=== PATIENT | male | born 1980 | race Caucasian/White ===

== ENCOUNTER 2018-01-13 02:58 | Emergency (ER) | payer SELFPAY ==
[2018-01-13] MEDS ORDERED: NA CHLORIDE 0.9% 1,000 ML ONE (03:42)
[2018-01-13 03:48] LABS: Absolute Monocytes 0.4 K/uL (0.1-1.3); Absolute Neutrophil 4.8 K/uL (1.8-8.0); Basophils % 2.2 % (0-1.3); Eosinophils % 1.9 % (0-4.4); Hematocrit 46.1 % (39.6-49.0); Lymphocytes % 34.9 % (15.3-44.8); MCH 31.2 pg (27.0-35.0); MCV 88.1 fL (80-100); MPV 8.7 fL (7.6-11.3); Monocytes % 4.9 % (3.3-12.3); RBC Red Blood Cell Count 5.23 M/uL (4.33-5.43)
[2018-01-13 03:50] LABS: Protime INR 0.97
[2018-01-13 04:28] LABS: ALT/SGPT 57 U/L (12-78); AST/SGOT 20 U/L (15-37); Albumin 3.9 g/dL (3.4-5.0); Alkaline Phosphatase 61 U/L (45-117); BUN Blood Urea Nitrogen 16 mg/dL (7-18); Bicarbonate 25 mmol/L (21-32); Bilirubin Direct < 0.1 mg/dL (0-0.2); Bilirubin Total 0.4 mg/dL (0.2-1.0); Glucose Level 103 mg/dL (74-106); Potassium 3.6 mmol/L (3.5-5.1); Protein, Total 7.5 g/dL (6.4-8.2); Sodium Level 140 mmol/L (136-145)
[2018-01-13 06:18] LABS: Urine Blood NEGATIVE (NEG); Urine Glucose NEGATIVE (NEG); Urine Protein NEGATIVE (NEG); Urine Specific Gravity 1.015 (1.005-1.030); Urine pH 5.5 (5.0-7.0)
[2018-01-13 06:22] LABS: Barbiturates NEGATIVE (NEGATIVE); Benzodiazepines NEGATIVE (NEGATIVE); Cocaine NEGATIVE (NEGATIVE); METHAMPHETAM NEGATIVE (NEGATIVE); Methadone NEGATIVE (NEGATIVE); Opiates NEGATIVE (NEGATIVE); Phencyclidine NEGATIVE (NEGATIVE); THC Cannibis POSITIVE (NEGATIVE)
--- NOTE | 2018-01-13 07:19 | EDPHYS ---
Physician Documentation [facility] Name: Jluis Vyas Age: 37 yrs Sex: Male : 1980 Arrival Date: 01/13/2018 Time: 03:02 Bed 6 Private MD: ED Physician Kye Cole HPI: 01/13 03:17 This 37 yrs old Male presents to ER via Unassigned with complaints of augusto Depression. 03:17 The patient presents to the emergency department with depression. Onset: The augusto symptoms/episode began/occurred 7 day(s) ago. Past psychiatric history: Prior diagnosis: depression. Associated signs and symptoms: The patient has no apparent associated signs or symptoms. Severity of symptoms: At their worst the symptoms were mild moderate in the emergency department the symptoms are unchanged. The patient has not experienced similar symptoms in the past. Historical: - Allergies: 03:23 No Known Allergies; jd3 - Home Meds: 03:23 Omeprazole Oral [Active]; jd3 - PMHx: 03:23 Crohn's; Sleep Apnea; jd3 - PSHx: 03:23 None; jd3 - Immunization history:: Adult Immunizations up to date, Flu vaccine is not up to date. - Social history:: Smoking status: Patient uses tobacco products, denies chronic smoking, but will smoke occasionally, pt reports vaping, Patient uses street drugs, marijuana. - Family history:: not pertinent. - Ebola Screening: : Patient negative for fever greater than or equal to 101.5 degrees Fahrenheit, and additional compatible Ebola Virus Disease symptoms. ROS: 03:17 Constitutional: Negative for fever, chills, and weight loss, Eyes: Negative for injury, augusto pain, redness, and discharge, ENT: Negative for injury, pain, and discharge, Neck: Negative for injury, pain, and swelling, Cardiovascular: Negative for chest pain, palpitations, and edema, Respiratory: Negative for shortness of breath, cough, wheezing, and pleuritic chest pain, Abdomen/GI: Negative for abdominal pain, nausea, vomiting, diarrhea, and constipation, Back: Negative for injury and pain, : Negative for injury, bleeding, discharge, and swelling, MS/Extremity: Negative for injury and deformity, Skin: Negative for injury, rash, and discoloration, Neuro: Negative for headache, weakness, numbness, tingling, and seizure, Allergy/Immunology: Negative for hives, rash, and allergies, Endocrine: Negative for neck swelling, polydipsia, polyuria, polyphagia, and marked weight changes, Hematologic/Lymphatic: Negative for swollen nodes, abnormal bleeding, and unusual bruising. 03:17 Psych: Positive for depression. Exam: :17 Constitutional: This is a well developed, well nourished patient who is awake, alert, augusto and in no acute distress. Head/Face: Normocephalic, atraumatic. Eyes: Pupils equal round and reactive to light, extra-ocular motions intact. Lids and lashes normal. Conjunctiva and sclera are non-icteric and not injected. Cornea within normal limits. Periorbital areas with no swelling, redness, or edema. ENT: Nares patent. No nasal discharge, no septal abnormalities noted. Tympanic membranes are normal and external auditory canals are clear. Oropharynx with no redness, swelling, or masses, exudates, or evidence of obstruction, uvula midline. Mucous membranes moist. Neck: Trachea midline, no thyromegaly or masses palpated, and no cervical lymphadenopathy. Supple, full range of motion without nuchal rigidity, or vertebral point tenderness. No Meningismus. Chest/axilla: Normal chest wall appearance and motion. Nontender with no deformity. No lesions are appreciated. Cardiovascular: Regular rate and rhythm with a normal S1 and S2. No gallops, murmurs, or rubs. Normal PMI, no JVD. No pulse deficits. Respiratory: Lungs have equal breath sounds bilaterally, clear to auscultation and percussion. No rales, rhonchi or wheezes noted. No increased work of breathing, no retractions or nasal flaring. Abdomen/GI: Soft, non-tender, with normal bowel sounds. No distension or tympany. No guarding or rebound. No evidence of tenderness throughout. Back: No spinal tenderness. No costovertebral tenderness. Full range of motion. Male : Normal genitalia with no discharge or lesions. Skin: Warm, dry with normal turgor. Normal color with no rashes, no lesions, and no evidence of cellulitis. MS/ Extremity: Pulses equal, no cyanosis. Neurovascular intact. Full, normal range of motion. Psych: Awake, alert, with orientation to person, place and time. Behavior, mood, and affect are within normal limits. 03:17 Neuro: Orientation: is normal, appropriate for stated age, no acute changes, Mentation: appropriate for stated age, no acute changes, responsive to voice Memory: is normal, appropriate for stated age, no acute changes, Motor: is normal, Gait: is steady, appropriate for age, Deep tendon reflexes are 2+ (normal) in the bilateral brachioradialis, bicep, tricep and patellar and Achilles tendons, seizure activity, is not displayed by the patient. 03:23 Psych: Behavior/mood is cooperative, depressed, Affect is flat, Oriented to Patient has augusto no thoughts/intents to harm self or others. Judgement / Insight is normal. Memory is normal. Delusions/hallucinations are not present. Vital Signs: 03:23 BP 168 / 91; Pulse 90; Resp 18 S; Temp 99.0(O); Pulse Ox 99% on R/A; Weight 136.08 kg jd3 (R); Height 6 ft. 5 in. (195.58 cm) (R); Pain 4/10; 07:15 BP 152 / 87; Pulse 81; Resp 18; Temp 98.0; Pulse Ox 99% on R/A; ph 03:23 Body Mass Index 35.57 (136.08 kg, 195.58 cm) jd3 MDM: 03:05 Patient medically screened. [place] 03:21 Data reviewed: vital signs, nurses notes, lab test result(s), EKG, radiologic studies, augusto plain films. 01/13 03:17 Order name: Acetaminophen; Complete Time: 05:18 [place] 01/13 03:17 Order name: Basic Metabolic Panel; Complete Time: 05:18 [place] 01/13 03:17 Order name: CBC with Diff; Complete Time: 04:12 [place] 01/13 03:17 Order name: ETOH Level; Complete Time: 04:12 [place] 01/13 03:17 Order name: Hepatic Function; Complete Time: 05:18 [place] 01/13 03:17 Order name: PT-INR; Complete Time: 04:12 [place] 01/13 03:17 Order name: Ptt, Activated; Complete Time: 04:12 [place] 01/13 03:17 Order name: Salicylate; Complete Time: 04:12 [place] 01/13 03:17 Order name: Urine Drug Screen [place] 01/13 03:17 Order name: EKG; Complete Time: 03:18 [place] 01/13 03:17 Order name: TSH; Complete Time: 05:18 [place] 01/13 04:33 Order name: T4 Free; Complete Time: 05:18 [facility] 01/13 06:00 Order name: Urine Dipstick--Ancillary (enter results) v[place] 01/13 03:17 Order name: EKG - Nurse/Tech; Complete Time: 03:41 [place] 01/13 03:17 Order name: IV Saline Lock; Complete Time: 03:40 [place] 01/13 03:17 Order name: Labs collected and sent; Complete Time: 03:41 [place] 01/13 03:17 Order name: Urine Dipstick-Ancillary (obtain specimen); Complete Time: 05:58 [place] Administered Medications: 03:38 Drug: NS 0.9% 1000 ml Route: IV; Rate: 1 bolus; Site: right antecubital; ea 07:00 Follow up: Response: No adverse reaction; IV Status: Completed infusion ph Disposition: 01/13/18 07:18 Discharged to Home. Impression: Major depressive disorder, recurrent, Suicidal ideations, Tobacco abuse counseling, Tobacco use. - Condition is Stable. - Discharge Instructions: Suicidal Feelings: How to Help Yourself, Helping Someone Who is Suicidal, Stress and Stress Management. - Medication Reconciliation Form, Thank You Letter, Antibiotic Education, Prescription Opioid Use form. - Follow up: Private Physician; When: 2 - 3 days; Reason: Recheck today's complaints, Continuance of care, Re-evaluation by your physician. Follow up: Tree Javier MD; When: 2 - 3 days; Reason: Recheck today's complaints, Re-evaluation by your physician. - Problem is new. - Symptoms have improved. Signatures: Dispatcher [employer] [facility] Kye Cole MD MD cha Hall, Patricia RN RN Sabina Hawkins RN RN ea Davies, Jonathon, RN RN jdeb Corrections: (The following items were deleted from the chart) 03:25 03:21 Social history: Smoking status: Patient uses tobacco products, denies chronic jd3 smoking, but will smoke occasionally, pt reports vaping, jd3 07:19 07:18 01/13/2018 07:18 Discharged to Home. Impression: Major depressive disorder, augusto recurrent; Suicidal ideations; Tobacco abuse counseling; Tobacco use. Condition is Stable. Discharge Instructions: Suicidal Feelings: How to Help Yourself, Helping Someone Who is Suicidal, Stress and Stress Management. Forms are Medication Reconciliation Form, Thank You Letter, Antibiotic Education, Prescription Opioid Use. Follow up: Private Physician; When: 2 - 3 days; Reason: Recheck today's complaints, Continuance of care, Re-evaluation by your physician. Problem is new. Symptoms have improved. [place] 07:43 07:19 01/13/2018 07:18 Discharged to Home. Impression: Major depressive disorder, ph recurrent; Suicidal ideations; Tobacco abuse counseling; Tobacco use. Condition is Stable. Discharge Instructions: Suicidal Feelings: How to Help Yourself, Helping Someone Who is Suicidal, Stress and Stress Management. Forms are Medication Reconciliation Form, Thank You Letter, Antibiotic Education, Prescription Opioid Use. Follow up: Private Physician; When: 2 - 3 days; Reason: Recheck today's complaints, Continuance of care, Re-evaluation by your physician. Follow up: Tree Javier; When: 2 - 3 days; Reason: Recheck today's complaints, Re-evaluation by your physician. Problem is new. Symptoms have improved. [place]
--- NOTE | 2018-01-13 07:19 | ER ---
Nurse's Notes [facility] Name: Jluis Vyas Age: 37 yrs Sex: Male : 1980 Arrival Date: 01/13/2018 Time: 03:02 Bed 6 Private MD: Diagnosis: Major depressive disorder, recurrent;Suicidal ideations;Tobacco abuse counseling;Tobacco use Presentation: 01/13 03:17 Presenting complaint: states: "He needs to be screened for depression. He has jd3 recent life events like loosing his job and a family member being diagnosed with cancer, that has left him feeling like he doesn't want to live anymore. He isn't suicidal at the moment, but he is doing things like not brushing his teeth or taking care of his Crohns hoping to get an infection and speed up the process.". Transition of care: patient was not received from another setting of care. Onset of symptoms was January 13, 2018. Risk Assessment: Do you want to hurt yourself or someone else? Patient reports desire/thoughts of hurting themselves or someone else. Provider notified. Initial Sepsis Screen: Does the patient meet any 2 criteria? No. Patient's initial sepsis screen is negative. Does the patient have a suspected source of infection? No. Patient's initial sepsis screen is negative. Care prior to arrival: None. 03:17 Method Of Arrival: Ambulatory jd3 03:17 Acuity: TON 2 jd3 Historical: - Allergies: 03:23 No Known Allergies; jd3 - Home Meds: 03:23 Omeprazole Oral [Active]; jd3 - PMHx: 03:23 Crohn's; Sleep Apnea; jd3 - PSHx: 03:23 None; jd3 - Immunization history:: Adult Immunizations up to date, Flu vaccine is not up to date. - Social history:: Smoking status: Patient uses tobacco products, denies chronic smoking, but will smoke occasionally, pt reports vaping, Patient uses street drugs, marijuana. - Family history:: not pertinent. - Ebola Screening: : Patient negative for fever greater than or equal to 101.5 degrees Fahrenheit, and additional compatible Ebola Virus Disease symptoms. Screenin:25 Abuse screen: Denies threats or abuse. Nutritional screening: No deficits noted. jd3 Tuberculosis screening: No symptoms or risk factors identified. Fall Risk Ambulatory Aid- None/Bed Rest/Nurse Assist (0 pts). Gait- Normal/Bed Rest/Wheelchair (0 pts) Mental Status- Oriented to own ability (0 pts). Total [place] Fall Scale indicates No Risk (0-24 pts). Assessment: 03:37 General: Appears in no apparent distress. uncomfortable, Behavior is cooperative, jd3 appropriate for age, quiet. Pain: Complains of pain in abdomen Quality of pain is described as aching, Is chronic. Neuro: Level of Consciousness is awake, alert, obeys commands, Oriented to person, place, time, situation, Appropriate for age. Cardiovascular: Denies chest pain, Capillary refill < 3 seconds Patient's skin is warm and dry. Rhythm is regular. Respiratory: Airway is patent Respiratory effort is even, unlabored, Respiratory pattern is regular, symmetrical, Denies cough, shortness of breath. GI: Abdomen is round non-distended, Reports chronic pain due to Crohn's. : No signs and/or symptoms were reported regarding the genitourinary system. EENT: No signs and/or symptoms were reported regarding the EENT system. Derm: Skin is intact, Skin is dry, Skin is normal, Skin temperature is warm. Musculoskeletal: Circulation, motion, and sensation intact. Range of motion: intact in all extremities. 03:50 Reassessment: awaiting [facility] motor vehicle field representative. jd3 04:00 Reassessment: Patient appears in no apparent distress at this time. No changes from jd3 previously documented assessment. Patient and/or family updated on plan of care and expected duration. Pain level reassessed. Patient is alert, oriented x 3, equal unlabored respirations, skin warm/dry/pink. 05:00 Reassessment: Patient appears in no apparent distress at this time. No changes from jd3 previously documented assessment. Patient and/or family updated on plan of care and expected duration. Pain level reassessed. Patient is alert, oriented x 3, equal unlabored respirations, skin warm/dry/pink. 06:00 Reassessment: Patient appears in no apparent distress at this time. No changes from jd3 previously documented assessment. Patient and/or family updated on plan of care and expected duration. Pain level reassessed. Patient is alert, oriented x 3, equal unlabored respirations, skin warm/dry/pink. 06:50 Reassessment: [facility] Rep at bedside. jd3 07:27 Reassessment: Patient appears in no apparent distress at this time. Patient and/or ph family updated on plan of care and expected duration. Pain level reassessed. Patient is alert, oriented x 3, equal unlabored respirations, skin warm/dry/pink. Pt d/c home w/ family, states that he will be following up w/ [facility] and will have an appointment on . Psych: 03:34 Subjective: Patient's mood is sad, hopeless, Delusions are denied, Hallucinations are jd3 denied Having thoughts of suicide. Denies suicidal plan. Objective: Patient is cooperative, Speech is normal, Affect is appropriate. Interventions: Interventions: Removed personal items and placed in bag. Patient placed in hospital gown. Searched person for dangerous items. Belonging list filled out. Suicide Risk Assessment: Sad Person Scale: Sex of patient: Male: Score 1 point. Age of patient: Score 0 point if patient falls outside of specified age parameters. Depression: Score 1 point if signs of depression are present. Previous Attempt: Score 0 point if patient has not previously attempted suicide. Substance Abuse: Score 1 point if patient abuses alcohol or drugs. Rational Thinking: Score 1 point if patient is lacking rational thinking. Social Support: Score 0 if social support is present/available. Organized Plan: Score 0 if patient did not have an organized plan in place. Relationship: Score 0 point if patient has a spouse or domestic partner. Chronic Sickness: Score 1 point if patient has illness, chronic, debilitating, or severe. TOTAL POINTS: If total points are 5-6, proposed clinical action is to strongly consider hospitalization, depending upon confidence in the follow-up arrangement. Implement suicide precautions. Safety Checks: Personal items have been removed. Door is open. Visitors are present. Patient uses marijuana pt reports using to help with Crohn's and abdominal pain. 06:45 Commitment: Patient will be a voluntary commitment. ph Vital Signs: 03:23 BP 168 / 91; Pulse 90; Resp 18 S; Temp 99.0(O); Pulse Ox 99% on R/A; Weight 136.08 kg jd3 (R); Height 6 ft. 5 in. (195.58 cm) (R); Pain 4/10; 07:15 BP 152 / 87; Pulse 81; Resp 18; Temp 98.0; Pulse Ox 99% on R/A; ph 03:23 Body Mass Index 35.57 (136.08 kg, 195.58 cm) jd3 ED Course: 03:02 Patient arrived in ED. es 03:05 Kye Cole MD is Attending Physician. augusto 03:10 Inserted saline lock: 20 gauge in right antecubital area, using aseptic technique. ea Blood collected. 03:21 Triage completed. jd3 03:25 Arm band placed on. EKG completed in triage. Results shown to MD. jd3 03:26 Patient has correct armband on for positive identification. Bed in low position. Call jd3 light in reach. Side rails up X 1. Adult w/ patient. 03:30 Safety checks: Items removed: yes. Door open/sign placed on door: yes. Family/friend mt present: yes. Sitter present: Yes. Other: Maria Alejandra Sue sitting one on one with patient. 03:31 Sabina Dasilva, RN is Primary Nurse. ea 03:45 Safety Checks: Personal items have been removed. The door is open or patient has been jd3 placed in a hallway bed/chair. A family member and/or friend is present and encouraged to stay. Sitter present at this time. 03:45 Safety checks: Items removed: yes. Door open/sign placed on door: yes. Family/friend mt present: yes. Sitter present: Yes. 04:00 Safety Checks: Personal items have been removed. The door is open or patient has been ea placed in a hallway bed/chair. A family member and/or friend is present and encouraged to stay. Sitter present at this time. 04:00 Safety checks: Items removed: yes. Door open/sign placed on door: yes. Family/friend mt present: yes. Sitter present: Yes. 04:15 Safety checks: Items removed: yes. Door open/sign placed on door: yes. Family/friend mt present: yes. Sitter present: Yes. 04:30 Safety checks: Items removed: yes. Door open/sign placed on door: yes. Family/friend mt present: yes. Sitter present: Yes. 04:45 Safety checks: Items removed: yes. Door open/sign placed on door: yes. Family/friend mt present: yes. Sitter present: Yes. 05:00 Safety checks: Items removed: yes. Door open/sign placed on door: yes. Family/friend mt present: yes. Sitter present: Yes. 05:15 Safety checks: Items removed: yes. Door open/sign placed on door: yes. Family/friend mt present: yes. Sitter present: Yes. 05:30 Safety checks: Items removed: yes. Door open/sign placed on door: yes. Family/friend mt present: yes. Sitter present: Yes. 05:30 Safety checks: Items removed: yes. Door open/sign placed on door: yes. Family/friend mt present: yes. Sitter present: Yes. 05:45 Safety checks: Items removed: yes. Door open/sign placed on door: yes. Family/friend mt present: yes. Sitter present: Yes. 06:00 Safety checks: Items removed: yes. Door open/sign placed on door: yes. Family/friend mt present: yes. Sitter present: Yes. 06:15 Safety checks: Items removed: yes. Door open/sign placed on door: yes. Family/friend mt present: yes. Sitter present: Yes. 06:30 Safety checks: Items removed: yes. Door open/sign placed on door: yes. Family/friend mt present: yes. Sitter present: Yes. 06:45 Safety Checks: Personal items have been removed. The door is open or patient has been jd3 placed in a hallway bed/chair. A family member and/or friend is present and encouraged to stay. Sitter present at this time. 07:19 Tree Javier MD is Referral Physician. [facility] 07:41 Assist provider with bone marrow aspiration. IV discontinued, intact, bleeding ph controlled, No redness/swelling at site. Pressure dressing applied. Administered Medications: 03:38 Drug: NS 0.9% 1000 ml Route: IV; Rate: 1 bolus; Site: right antecubital; ea 07:00 Follow up: Response: No adverse reaction; IV Status: Completed infusion ph Outcome: 07:18 Discharge ordered by . augusto 07:41 Discharged to home ambulatory, with family, with significant other. ph 07:41 Condition: good 07:41 Discharge instructions given to patient, significant other, Instructed on discharge instructions, follow up and referral plans. Demonstrated understanding of instructions, follow-up care. 07:43 Patient left the ED. ph Signatures: Kye Cole MD MD cha Salyer, Edna es Hall, Patricia, RN RN Marquis, [place] Sabina Arenas RN RN ea Davies, Jonathon, RN RN jd3 Corrections: (The following items were deleted from the chart) 03:25 03:21 Social history: Smoking status: Patient uses tobacco products, denies chronic jd3 smoking, but will smoke occasionally, pt reports vaping, jd3 03:46 03:34 Interventions: jd3 jd3 03:47 03:34 Safety Checks: Door is open. jd3 jd3 03:47 03:34 Patient uses marijuana pt reports using to help with Crohn's and abdominal pain. jd3 jd3 04:27 04:00 Safety checks: Items removed: yes. Door open/sign placed on door: yes. mt Family/friend present: yes. Sitter present: Yes. mt
== END 2018-01-13 07:43 | disposition home or self-care (01) ==
LOC: ER 02:58
DX: F33.9 Major depressive disorder, recurrent, unspecified (principal); R45.851 Suicidal ideations; Z72.0 Tobacco use; Z71.6 Tobacco abuse counseling
CPT/HCPCS: 36415; 80048; 80076; 80307; 80320; 80329; 81003; 84439; 84443; 85025; 85610; 85730; 93005; 96360; 96361; 99285; J7030

== ENCOUNTER 2018-11-11 15:43 | Emergency (ER) | payer SELFPAY ==
[2018-11-11] MEDS ORDERED: IBUPROFEN 400 MG TAB ONE (16:05)
--- NOTE | 2018-11-11 16:43 | ER ---
Nurse's Notes [facility] Name: Jluis Vyas Age: 38 yrs Sex: Male : 1980 Arrival Date: 11/11/2018 Time: 15:45 Bed 12 Private MD: Diagnosis: Contusion of left wrist;Pain in left hand Presentation: 11/11 15:52 Presenting complaint: Patient states: smashed L wrist between a wrench and the truck ch around 1100. pain is increasing since then. Transition of care: patient was not received from another setting of care. Onset of symptoms was November 11, 2018 at 11:00. Risk Assessment: Do you want to hurt yourself or someone else? Patient reports no desire to harm self or others. Initial Sepsis Screen: Does the patient meet any 2 criteria? No. Patient's initial sepsis screen is negative. Does the patient have a suspected source of infection? No. Patient's initial sepsis screen is negative. Care prior to arrival: None. 15:52 Method Of Arrival: Ambulatory 15:52 Acuity: TON 4 ch Triage Assessment: 15:53 General: Appears in no apparent distress. comfortable, Behavior is calm, cooperative, ch appropriate for age. Pain: Complains of pain in left wrist Pain currently is 5 out of 10 on a pain scale. Neuro: No deficits noted. Musculoskeletal: Capillary refill < 3 seconds, in bilateral fingers. toes. Range of motion: limited in left wrist. Injury Description: contusion. pt said a wrench slipped and his hand moved and whacked the truck metal. pain is mainly in the back of his hand. Historical: - Allergies: 15:53 No Known Allergies; ch - PMHx: 15:53 Crohn's; Sleep Apnea; ch - PSHx: 15:53 None; - Immunization history:: Adult Immunizations up to date, Last tetanus immunization: up to date Flu vaccine is not up to date. - Social history:: Smoking status: Patient uses tobacco products, vape, Patient uses alcohol, but reports only rare drinking. - Ebola Screening: : Patient negative for fever greater than or equal to 101.5 degrees Fahrenheit, and additional compatible Ebola Virus Disease symptoms Patient denies exposure to infectious person Patient denies travel to an Ebola-affected area in the 21 days before illness onset No symptoms or risks identified at this time. Screenin:03 Abuse screen: Denies threats or abuse. Denies injuries from another. Nutritional ch screening: No deficits noted. Tuberculosis screening: No symptoms or risk factors identified. Fall Risk None identified. Assessment: 17:03 General: Appears in no apparent distress. uncomfortable, Behavior is calm, cooperative, ch appropriate for age. Pain: Complains of pain in left hand and dorsum of left hand and left wrist Pain currently is 2 out of 10 on a pain scale. Neuro: No deficits noted. Cardiovascular: No deficits noted. Respiratory: Airway is patent Respiratory effort is even, unlabored. GI: No signs and/or symptoms were reported involving the gastrointestinal system. Derm: Skin is pink, warm \T\ dry. Musculoskeletal: Capillary refill < 3 seconds, in bilateral fingers. Range of motion: intact in all extremities, Swelling absent. Vital Signs: 15:53 BP 133 / 86; Pulse 79; Resp 18; Temp 98.5; Pulse Ox 99% on R/A; Weight 135.17 kg; ch Height 6 ft. 5 in. (195.58 cm); Pain 4/10; 15:53 Body Mass Index 35.34 (135.17 kg, 195.58 cm) ED Course: 15:45 Patient arrived in ED. as 15:53 Triage completed. 15:53 [facility] Mer[facility]C [facility] kb 15:53 Akshat Salcedo MD is Attending Physician. kb 15:53 Arm band placed on right wrist. Patient placed in an exam room, on a stretcher. 15:57 Tamera Wilson, RN is Primary Nurse. iw 16:39 X-ray completed. Portable x-ray completed in exam room. Patient tolerated procedure mh1 well. 16:42 Hand Left 3 View XRAY In Process Unspecified. EDMS 17:03 No apparent distress. Resting quietly. 17:03 Patient has correct armband on for positive identification. Bed in low position. Call light in reach. Side rails up X 1. Adult w/ patient. 17:03 No provider procedures requiring assistance completed. Patient did not have IV access ch during this emergency room visit. Eric wrap to left wrist and left hand pt tolerated well, applied by Tamera Whitten Administered Medications: 16:07 Drug: Ibuprofen 800 mg Route: PO; iw 17:05 Follow up: Response: No adverse reaction; Pain is decreased Outcome: 16:42 Discharge ordered by MD. tran 17:03 Discharged to home ambulatory, with family. 17:03 Condition: improved 17:03 Discharge instructions given to patient, family, Instructed on discharge instructions, follow up and referral plans. medication usage, Demonstrated understanding of instructions, follow-up care, medications, Prescriptions given X 1. 17:05 Patient left the ED. Signatures: Dispatcher [employer] EDLesly Guerrero, RESPIRATORY MANAGER-C JULIO-Danielle Keith, RN RN Nely Pruitt [address] [place] Irene, RN RN
--- NOTE | 2018-11-11 16:43 | EDPHYS ---
Physician Documentation [facility] Name: Jluis Vyas Age: 38 yrs Sex: Male : 1980 Arrival Date: 11/11/2018 Time: 15:45 Bed 12 Private MD: ED Physician Akshat Salcedo HPI: 11/11 16:26 This 38 yrs old Male presents to ER via Ambulatory with complaints of Wrist kb Injury. 16:26 The patient or guardian reports a contusion, injury, pain, tenderness. The complaints kb affect the left wrist diffusely. Context: The problem was sustained outdoors, resulted from a direct blow, car. Onset: The symptoms/episode began/occurred at 11:00. Modifying factors: The symptoms are alleviated by nothing, the symptoms are aggravated by nothing. Associated signs and symptoms: The patient has no apparent associated signs or symptoms. The patient has not experienced similar symptoms in the past. The patient has not recently seen a physician. 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 Abrasion to wrist, but hand is what is hurting. Historical: - Allergies: 15:53 No Known Allergies; ch - PMHx: 15:53 Crohn's; Sleep Apnea; ch - PSHx: 15:53 None; ch - Immunization history:: Adult Immunizations up to date, Last tetanus immunization: up to date Flu vaccine is not up to date. - Social history:: Smoking status: Patient uses tobacco products, vape, Patient uses alcohol, but reports only rare drinking. - Ebola Screening: : Patient negative for fever greater than or equal to 101.5 degrees Fahrenheit, and additional compatible Ebola Virus Disease symptoms Patient denies exposure to infectious person Patient denies travel to an Ebola-affected area in the 21 days before illness onset No symptoms or risks identified at this time. ROS: 16:25 Constitutional: Negative for fever, chills, and weight loss, Cardiovascular: Negative kb for chest pain, palpitations, and edema, Respiratory: Negative for shortness of breath, cough, wheezing, and pleuritic chest pain, Abdomen/GI: Negative for abdominal pain, nausea, vomiting, diarrhea, and constipation, Skin: Negative for injury, rash, and discoloration, Neuro: Negative for headache, weakness, numbness, tingling, and seizure. 16:25 MS/extremity: Positive for injury or acute deformity, abrasion, pain, tenderness, of the dorsum of left hand and left wrist. Exam: 16:24 Constitutional: This is a well developed, well nourished patient who is awake, alert, kb and in no acute distress. Head/Face: Normocephalic, atraumatic. Neck: Trachea midline, no thyromegaly or masses palpated, and no cervical lymphadenopathy. Supple, full range of motion without nuchal rigidity, or vertebral point tenderness. No Meningismus. Chest/axilla: Normal chest wall appearance and motion. Nontender with no deformity. No lesions are appreciated. Cardiovascular: Regular rate and rhythm with a normal S1 and S2. No gallops, murmurs, or rubs. Normal PMI, no JVD. No pulse deficits. Respiratory: Lungs have equal breath sounds bilaterally, clear to auscultation and percussion. No rales, rhonchi or wheezes noted. No increased work of breathing, no retractions or nasal flaring. Abdomen/GI: Soft, non-tender, with normal bowel sounds. No distension or tympany. No guarding or rebound. No evidence of tenderness throughout. Back: No spinal tenderness. No costovertebral tenderness. Full range of motion. Neuro: Awake and alert, GCS 15, oriented to person, place, time, and situation. Cranial nerves II-XII grossly intact. Motor strength 5/5 in all extremities. Sensory grossly intact. Cerebellar exam normal. Normal gait. 16:24 Musculoskeletal/extremity: Extremities: grossly normal except: noted in the dorsum of left hand: pain, tenderness, ROM: intact in all extremities, Circulation is intact in all extremities. Sensation intact. 16:24 Skin: injury, abrasion(s), small abrasion noted, of the left wrist. Vital Signs: 15:53 BP 133 / 86; Pulse 79; Resp 18; Temp 98.5; Pulse Ox 99% on R/A; Weight 135.17 kg; ch Height 6 ft. 5 in. (195.58 cm); Pain 4/10; 15:53 Body Mass Index 35.34 (135.17 kg, 195.58 cm) ch MDM: 15:53 Patient medically screened. kb 16:24 Data reviewed: vital signs, nurses notes. Data interpreted: Pulse oximetry: on room air kb is 99 %. Interpretation: normal. 16:41 Counseling: I had a detailed discussion with the patient and/or guardian regarding: the kb historical points, exam findings, and any diagnostic results supporting the discharge/admit diagnosis, radiology results, the need for outpatient follow up, a family practitioner, to return to the emergency department if symptoms worsen or persist or if there are any questions or concerns that arise at home. 11/11 15:55 Order name: Hand Left 3 View XRAY; Complete Time: 17:07 kb 11/11 16:47 Order name: Eric Wrap; Complete Time: 17:06 kb Administered Medications: 16:07 Drug: Ibuprofen 800 mg Route: PO; 17:05 Follow up: Response: No adverse reaction; Pain is decreased Disposition: 17:12 Co-signature as Attending Physician, Akshat Salcedo MD. rn Disposition: 11/11/18 16:42 Discharged to Home. Impression: Contusion of left wrist, Pain in left hand. - Condition is Stable. - Discharge Instructions: Musculoskeletal Pain. - Prescriptions for Diclofenac Sodium 75 mg Oral Tablet, Delayed Release (E.C.) - take 1 tablet by ORAL route 2 times per day As needed; 30 tablet. - Work release form, Medication Reconciliation Form, Thank You Letter, Antibiotic Education, Prescription Opioid Use form. - Follow up: Emergency Department; When: As needed; Reason: Worsening of condition. Follow up: Private Physician; When: 2 - 3 days; Reason: Recheck today's complaints, Continuance of care, Re-evaluation by your physician. Signatures: Dispatcher [employer] Lesly Alonso, JUL[employer] RADIOLOGY PHYSICIAN ASSISTANT-Danielle Keith RN RN Tamera Wilson RN RN Akshat Salcedo MD MD burnisher and bumper: (The following items were deleted from the chart) 17:05 16:42 11/11/2018 16:42 Discharged to Home. Impression: Contusion of left wrist; Pain in ch left hand. Condition is Stable. Forms are Medication Reconciliation Form, Thank You Letter, Antibiotic Education, Prescription Opioid Use. Follow up: Emergency Department; When: As needed; Reason: Worsening of condition. Follow up: Private Physician; When: 2 - 3 days; Reason: Recheck today's complaints, Continuance of care, Re-evaluation by your physician. kb
--- NOTE | 2018-11-11 17:01 | RAD REPORT ---
EXAM DESCRIPTION: RAD - Hand Left 3 View - 11/11/2018 4:40 pm CLINICAL HISTORY: PAIN COMPARISON: No comparisons FINDINGS: Soft tissue swelling is seen along the dorsum of the wrist. No acute fracture or dislocati on evident.
== END 2018-11-11 17:05 | disposition home or self-care (01) ==
LOC: ER 15:43
DX: S60.212A Contusion of left wrist, initial encounter (principal); M79.642 Pain in left hand; W22.8XXA Striking against or struck by other objects, initial encounter; Y93.89 Activity, other specified; Y92.89 Other specified places as the place of occurrence of the external cause; Z72.0 Tobacco use
CPT/HCPCS: 99284